=== PATIENT | female | born 1985 | race Hispanic/Latino ===

== ENCOUNTER 2018-08-29 13:19 | Emergency (ER) | payer SELFPAY ==
[2018-08-29] MEDS ORDERED: Sodium Chloride 0.9% 1,000 ML IV ONE (13:36)
[2018-08-29] MEDS ORDERED: Sodium Chloride 0.9% 1,000 ML ONE (13:43)
[2018-08-29 13:46] VITALS: BP 108/72; PULSE 50; RESP 20; TEMP 97.5; O2SAT 100
[2018-08-29 14:13] LABS: BASO # 0.1 K/uL (0.0-0.2); BASO % 0.5 % (0.0-2.0); EOS # 0.1 K/uL (0.0-0.7); EOS % 0.7 % (0.0-4.0); HEMOGLOBIN 12.9 g/dL (11.0-16.0); LYMPH # 1.9 K/uL (1.0-4.3); LYMPH % 14.5 % (20.0-40.0); MEAN CELL VOLUME 90.6 fL (81.0-99.0); MEAN CORPUSCULAR HEMOGLOBIN 30.5 pg (27.0-31.0); MEAN CORPUSCULAR HGB CONC 33.6 g/dL (33.0-37.0); MONO # 0.9 K/uL (0.0-0.8); MONO % 7.1 % (0.0-10.0); NEUT # 10.2 K/uL (1.8-7.0); NEUT % 77.2 % (50.0-75.0); RBC 4.23 Mil/uL (3.80-5.20); RED CELL DISTRIBUTION WIDTH 13.2 % (11.5-14.5); WHITE BLOOD COUNT 13.2 K/uL (4.8-10.8)
[2018-08-29 14:35] LABS: BLOOD UREA NITROGEN 6 mg/dL (7-17); GFR NON-AFRICAN AMERICAN > 60; LIPASE 84 U/L (23-300)
[2018-08-29 14:52] LABS: ALB/GLOB RATIO 1.4 (1.0-2.1); ALBUMIN 4.9 g/dL (3.5-5.0); ALT/SGPT 16 U/L (9-52); AST/SGOT 40 U/L (14-36)
[2018-08-29 15:00] LABS: SQUAMOUS EPITHIAL < 1 /hpf (0-5); URINE BACTERIA RARE (<OCC); URINE BILIRUBIN NEGATIVE (NEGATIVE); URINE BLOOD 3+ (NEGATIVE); URINE CLARITY Hazy (Clear); URINE COLOR Amber (YELLOW); URINE GLUCOSE (UA) NORMAL (Normal); URINE LEUKOCYTE ESTERASE NEG Leu/uL (Negative); URINE PROTEIN NEGATIVE (NEGATIVE); URINE UROBILINOGEN NORMAL mg/dL (0.2-1.0)
[2018-08-29 15:02] LABS: HCG,QUALITATIVE URINE NEGATIVE (NEGATIVE)
--- NOTE | 2018-08-29 15:06 | C.PDOC ---
History Of Present Illness 33 y/o female presents to ED complaining of lower pelvic discomfort, menstrual cramps, nausea, retching, and diarrhea. Patient states she is unable to take her usual motrin and tylenol due to menstrual cramps. She denies any other c omplaints. Time Seen by Provider: 08/29/18 13:34 Chief Complaint (Nursing): Abdominal Pain History Per: Patient History/Exam Limitations: no limitations Onset/Duration Of Symptoms: Hrs Current Symptoms Are (Timing): Still Present Past Medical History Reviewed: Historical Data, Nursing Documentation, Vital Signs Vital Signs: Last Vital Signs Temp 97.5 F L 08/29/18 13:27 Pulse 50 L 08/29/18 13:27 Resp 20 08/29/18 13:27 BP 108/72 08/29/18 13:27 Pulse Ox 100 08/29/18 13:27 Primary Care Provider: Non [facility] Provider, Family History: States: No Known Family Hx - Social History Hx Alcohol Use: No Hx Substance Use: No Review Of Systems Except As Marked, All Systems Reviewed And Found Negative. Gastrointestinal: Positive for: Nausea, Diarrhea, Other (menstrual cramps, retching) Genitourinary: Positive for: Pelvic Pain. Negative for: Dysuria Musculoskeletal: Negative for: Back Pain Physical Exam - Physical Exam Appears: Non-toxic, No Acute Distress Skin: Warm, Dry, Pale Head: Normacephalic Eye(s): bilateral: Normal Inspection Oral Mucosa: Moist Neck: Supple Cardiovascular: Rhythm Regular, No Murmur Respiratory: Normal Breath Sounds, No Rales, No Rhonchi, No Wheezing Gastrointestinal/Abdominal: Soft, No Tenderness, No Distention, No Guarding, No Rebound Extremity: Bilateral: Normal Color And Temperature, Normal ROM Neurological/Psych: Oriented x3, Normal Speech ED Course And Treatment - Laboratory Results Result Diagrams: 08/29/18 14:10 08/29/18 14:10 Lab Results: Total Bilirubin 0.7 mg/dL (0.2-1.3) 08/29/18 14:10 Lipase 84 U/L (23-300) 08/29/18 14:10 O2 Sat by Pulse Oximetry: 100 (RA) Pulse Ox Interpretation: Normal Medical Decision Making Medical Decision Making: Plan: --Labs --Urine HCG --UA --Pepcid 20 mg IVP --IV fluids 1L --Toradol 30 mg IVP --Zofran 4 mg IVP menstrual cramping retching, prob causing demargination belly benign throughout defer pelvic US, preg neg. ? underlying ovarian cyst related. Disposition Doctor Will See Patient In The: Office Counseled Patient/Family Regarding: Studies Performed, Diagnosis - Disposition Referrals: [facility] [Outside] [facility] [Outside] [facility] [Outside] [facility] [Outside] Disposition: HOME/ ROUTINE Disposition Time: 15:10 Condition: GOOD Additional Instructions: urinalysis and tests NEGATIVE normal med routine for menstrual cramps. Instructions: Diarrhea in Adolescents and Adults, Menstrual Cramps Forms: [facility] ([facility] ([place]) - Clinical Impression Clinical Impression: Menstrual cramps, Vomiting and diarrhea - Scribe Statement The provider has reviewed the documentation as recorded by the Catyibaren Rosen Provider Attestation: All medical record entries made by the Catyibaren were at my direction and personally dictated by me. I have reviewed the chart and agree that the record accurately reflects my personal performance of the history, physical exam, medical decision making, and the department course for this patient. I have also personally directed, reviewed, and agree with the discharge instructions and disposition.
== END 2018-08-29 15:27 | disposition home or self-care (01) ==
LOC: C.ER 13:19
DX: R11.10 Vomiting, unspecified (principal); R19.7 Diarrhea, unspecified; N94.6 Dysmenorrhea, unspecified
CPT/HCPCS: 80053; 81001; 83690; 84702; 84703; 85025; 96361; 96374; 96375; 99284; J1885; J2405; J7030